=== PATIENT | female | born 1990 | race Caucasian/White ===

== ENCOUNTER 2017-12-08 12:39 | Outpatient (RCR) | payer OTHER ==
--- NOTE | 2017-12-23 22:47 | Discharge Summary ---
AKIRA LOPEZ (00:02) VENTURA WOODS MD Job#: [id number]
== END 2017-12-25 ==
LOC: OT 12:39
PROVIDERS: ATTEND Surgery Surgery of the Hand
DX: M65.4 Radial styloid tenosynovitis [de Quervain] (principal); M25.532 Pain in left wrist